=== PATIENT | male | born 1970 | race Asian ===

== ENCOUNTER 2018-03-03 20:59 | Emergency (ER) | payer MEDICAID, MEDICARE ==
[~2018-03-03] VITALS: Ht 175.3 cm; Wt 72.6 kg
[2018-03-03] MEDS ORDERED: PERMETHRIN60 GM TOPIC (21:20)
--- NOTE | 2018-03-03 21:21 | Emergency Room Report ---
History of Present Illness General Chief Complaint: General Complaint Source: Patient, Medical Record Present Illness HPI Is a 47-year-old male who [facility]. One of his diagnosis scabies. He was sent in here with a chief complaint of possible scabies. Patient denies any symptom. He said his been ongoing for a while. Symptom he scratches skin. He is not itching. No fever or chills. Is diffuse in nature. Denies any drug use. No other complaint. Allergies: Coded Allergies: No Known Allergies (Unverified , 03/03/18) Patient History Past Medical History: see triage record, old chart reviewed, psych hx Past Surgical History: other Pertinent Family History: none Social History: Denies: smoking Immunizations: other Reviewed Nursing Documentation: PMH: Agreed; PSxH: Agreed Nursing Documentation-PMH Hx Diabetes: Yes History Of Psychiatric Problem: Yes - bipolar,schizophrenia Review of Systems Eye: Denies: eye pain, blurred vision ENT: Denies: ear pain, nose congestion, throat swelling Respiratory: Denies: cough, shortness of breath Cardiovascular: Denies: chest pain, palpitations Gastrointestinal: Denies: abdominal pain, diarrhea, nausea, vomiting Musculoskeletal: Denies: back pain, joint pain Skin: Reports: rash Neurological: Denies: headache, numbness Endocrine: Denies: increased thirst, increased urine Hematologic/Lymphatic: Denies: easy bruising All Other Systems: negative except mentioned in HPI Physical Exam Vital Signs Date Time Temp Pulse Resp B/P (MAP) Pulse Ox O2 Delivery O2 Flow Rate FiO2 03/03/18 21:00 98.9 90 22 114/72 96 Room Air 99.0 vitals normal Sp02 EP Interpretation: reviewed, normal General Appearance: well appearing, no apparent distress, alert Head: normocephalic, atraumatic Eyes: bilateral eye PERRL, bilateral eye EOMI ENT: hearing grossly normal, normal pharynx Neck: full range of motion, supple, no meningismus Respiratory: chest non-tender, lungs clear, normal breath sounds Cardiovascular #1: regular rate, rhythm, no murmur Gastrointestinal: normal bowel sounds, non tender, no mass, no organomegaly, no bruit, non-distended Musculoskeletal: back normal, gait/station normal, normal range of motion Neurologic: alert, oriented x3 Psychiatric: mood/affect normal Skin: warm/dry, rash - He has lesion mostly on his feet that look like psoriasis. Lesion on his body is diffuse and scaly. Does not appear to be scabies. No evidence of any body lice. Medical Decision Making ER Course Patient with lesion on his body. This appeared to be more of eczema/psoriasis rather than scabies. It appeared to be benign. I discussed the case with Dr. Jacinto and will send him back. We'll go ahead and prescribe permethrin just in case. He denies any drug use like methamphetamine. Because if he does this may be secondary to delusional parasitosis. Last Vital Signs Date Time Temp Pulse Resp B/P (MAP) Pulse Ox O2 Delivery O2 Flow Rate FiO2 03/03/18 21:00 98.9 90 22 114/72 96 Room Air 99.0 Status: unchanged Disposition: XFER [facility] Condition: Stable Scripts Permethrin* (ELIMITE*) 60 Gm Cream..g. 1 APPLIC TOPIC ONCE, #60 GM 0 Refills Apply cream from head to toe; leave on for 8-14 hours before washing off with water; may reapply in 1 week if live mites appear. Prov: JENNIFER RODRIGUEZ M.D. 03/03/18 Additional Instructions: Follow-up with your doctor in 7 days. Return if symptom worsen. JENNIFER RODRIGUEZ M.D. Mar 03, 2018 21:21
[2018-03-03] MEDS ORDERED: ABILIFY20 MG ORAL (21:29)
[2018-03-03] MEDS ORDERED: BUPROPION XL150 MG ORAL (21:30)
[2018-03-03] MEDS ORDERED: CLARITIN10 M2 ORAL (21:30)
[2018-03-03] MEDS ORDERED: SULFAMETHOXAZO1 EAC2 ORAL (21:31)
[2018-03-03] MEDS ORDERED: SIMVASTATIN40 MG ORAL (21:31)
[2018-03-03] MEDS ORDERED: METFORMIN HCL1000 M1 ORAL (21:31)
[2018-03-03 21:32] VITALS: BP 114/72
[2018-03-03 21:34] VITALS: BP 0/0
== END 2018-03-03 21:38 ==
LOC: EDBD 20:59 → EMR 21:29
DX: L30.9 Dermatitis, unspecified (principal); E11.9 Type 2 diabetes mellitus without complications; F31.9 Bipolar disorder, unspecified; F20.9 Schizophrenia, unspecified
CPT/HCPCS: 99283